=== PATIENT | female | born 1980 | race Caucasian/White ===

== ENCOUNTER 2019-01-08 15:12 | Emergency (ER) | payer OTHER ==
[2019-01-08] MEDS ORDERED: HYDROmorphone 2 MG/ML SDV IM ONE (15:20)
--- NOTE | 2019-01-08 15:38 | EDM.PDOC ---
ED HPI GENERAL MEDICAL PROBLEM - General Chief Complaint: Back Pain or Injury Stated Complaint: LR BACK PAIN Time Seen by Provider: 01/08/19 15:22 Source of Information: Reports: Patient History Limitations: Reports: No Limitations - History of Present Illness INITIAL COMMENTS - FREE TEXT/NARRATIVE: HISTORY AND PHYSICAL: History of present illness: Patient is a 38-year-old female who presents to the emergency room today with complaints of left low lumbar back pain that radiates down her gluteal and is associated with some tingling to the lower extremity. She states symptoms have been ongoing for approximately one week after bending down to pick something off the ground. She has seen the chiropractor for adjustments 3 times within the last several days, without any relief. Patient reports that she has now had 3 episodes of back pain since August 2018. She denies any recent injury, trauma or falls. Patient is ambulatory into the emergency room and does have full sensation of the affected extremity. She states the position of comfort is hunched over and leaning on something stable. Patient denies any fever, chills, headache, change in vision, syncope or near syncope. Denies any chest pain, shortness of breath or cough. Denies any abdominal pain, nausea, vomiting, diarrhea, constipation or dysuria. Has not noted any blood in urine or stool. Patient has been eating and drinking appropriately. Review of systems: As per history of present illness and below otherwise all systems reviewed and negative. Past medical history: As per history of present illness and as reviewed below otherwise noncontributory. Surgical history: As per history of present illness and as reviewed below otherwise noncontributory. Social history: See social history for further information Family history: As per history of present illness and as reviewed below otherwise noncontributory. Physical exam: General: Well-developed and well nourished 38-year-old female. Alert and oriented. Nontoxic appearing and in no acute distress. HEENT: Atraumatic, normocephalic, pupils equal and reactive bilaterally, negative for conjunctival pallor or scleral icterus, mucous membranes moist, TMs normal bilaterally, throat clear, neck supple, nontender, trachea midline. No drooling or trismus noted. No meningeal signs. No hot potato voice noted. Lungs: Clear to auscultation, breath sounds equal bilaterally, chest nontender. Heart: S1S2, regular rate and rhythm without overt murmur Abdomen: Soft, nondistended, nontender. Negative for masses or hepatosplenomegaly. Negative for costovertebral tenderness. Pelvis: Stable nontender. Genitourinary: Deferred. Rectal: Deferred. Skin: Intact, warm, dry. No lesions or rashes noted. Extremities: Atraumatic, moves all extremities per self without difficulty or deficits, negative for cords or calf pain. Neurovascular unremarkable. C-spine/Back: No pinpoint vertebral tenderness upon palpation. No crepitus, step -offs or obvious deformities. Patient is ambulatory into the emergency room without difficulty or deficits. She denies any urinary or fecal incontinence. Denies any numbness, tingling or saddle paresthesias. Patient does have some muscular tenderness to the low lumbar region above the left gluteus. Neuro: Awake, alert, oriented. Cranial nerves II through XII unremarkable. Cerebellum unremarkable. Motor and sensory unremarkable throughout. Exam nonfocal. Notes: Patient denies any chance of , total hysterectomy. Approximately one hour after receiving the Dilaudid IM, as we are waiting on the CT results, she states her pain has not improved. We'll give her Toradol and Norflex IM. Her vital signs are stable. Ct shows that at L5-S1, caudally migrated left central disc extrusion extends into the left lateral recess with likely impingement of traversing left S1 nerve roots. Correlate with symptoms of left S1 radiculopathy. At L4-5, mild right neural foraminal narrowing. Asymmetric narrowing of the right lateral recess. No acute fracture or spondylolisthesis. Mild leftward lumbar curvature. CT results were reviewed with the patient. Supportive care measures were reviewed and discussed. Voices understanding and is agreeable to plan of care. Denies any further questions or concerns at this time. Diagnostics: CBC, CMP, UA, CT lumbar spine Therapeutics: Dilaudid IM, Norflex, Toradol Prescription: Diclofenac (#30) Cromwell (#30) Bactrim 160mg Impression: Lumbar back pain UTI Plan: 1. The medication he received as an injection today does cause drowsiness so do not drive for the remaining day 2. When resting please lay on a flat firm surface. Limit your immobility to prevent muscle stiffness, get up to ambulate/move around/gentle stretching multiple times throughout the day. May alternate heat and ice to the painful area and 3. Tylenol as needed for back pain. Otherwise take the prescribed Cromwell and diclofenac as directed. Diclofenac is an anti-inflammatory so do not take any additional NSAIDs with this medication, such as ibuprofen or Aleve. Cromwell may cause drowsiness a do not take it will driving her needing to be functioning outside of the house. 4. Please follow-up with your primary care provider as we discussed. 5. Return to the ED as needed and as discussed. Definitive disposition and diagnosis as appropriate pending reevaluation and review of above. Lower Back Pain Score (Numeric/FACES): 10 - Related Data Allergies Allergy/AdvReac Type Severity Reaction Status Date / Time No Known Allergies Allergy Verified 06/06/14 06:03 Home Meds: Home Meds . [Unable to Verify Home Med List] 01/08/19 [History] ED ROS GENERAL - Review of Systems Review Of Systems: ROS reveals no pertinent complaints other than HPI. ED EXAM,LOWER BACK PAIN/INJURY - Physical Exam Exam: See Below (See dictation) Course - Vital Signs Last Recorded V/S: Last Vital Signs Temp 98 F 01/08/19 15:18 Pulse 125 H 01/08/19 15:18 Resp 22 H 01/08/19 15:18 BP 134/93 H 01/08/19 15:18 Pulse Ox 98 01/08/19 15:18 - Orders/Labs/Meds Labs: Laboratory Tests 01/08/19 01/08/19 01/08/19 Range/Units 15:30 15:30 16:40 WBC 16.04 H (4.0-11.0) K/uL RBC 5.73 (4.30-5.90) M/uL Hgb 16.9 H (12.0-16.0) g/dL Hct 47.7 H (36.0-46.0) % MCV 83.2 (80.0-98.0) fL MCH 29.5 (27.0-32.0) pg MCHC 35.4 (31.0-37.0) g/dL RDW Std Deviation 41.1 (28.0-62.0) fl RDW Coeff of Jaiden 14 (11.0-15.0) % Plt Count 109 L (150-400) K/uL MPV 11.50 (7.40-12.00) fL Neut % (Auto) 74.2 (48.0-80.0) % Lymph % (Auto) 19.6 (16.0-40.0) % [place] % (Auto) 5.9 (0.0-15.0) % Eos % (Auto) 0.1 (0.0-7.0) % Baso % (Auto) 0.2 (0.0-1.5) % Neut # (Auto) 11.9 H (1.4-5.7) K/uL Lymph # (Auto) 3.1 H (0.6-2.4) K/uL [place] # (Auto) 1.0 H (0.0-0.8) K/uL Eos # (Auto) 0.0 (0.0-0.7) K/uL Baso # (Auto) 0.0 (0.0-0.1) K/uL Nucleated RBC % 0.0 /100WBC Nucleated RBCs # 0 K/uL Sodium 138 (136-145) mmol/L Potassium 4.4 (3.5-5.1) mmol/L Chloride 103 (98-107) mmol/L Carbon Dioxide 23.9 (21.0-32.0) mmol/L BUN 14 (7.0-18.0) mg/dL Creatinine 0.8 (0.6-1.0) mg/dL Est Cr Clr Drug Dosing 90.90 mL/min Estimated GFR (MDRD) > 60.0 ml/min Glucose 108 H (74-106) mg/dL Calcium 9.3 (8.5-10.1) mg/dL Total Bilirubin 1.3 H (0.2-1.0) mg/dL AST 15 (15-37) IU/L ALT 24 (14-63) IU/L Alkaline Phosphatase 74 (46-116) U/L Total Protein 8.3 H (6.4-8.2) g/dL Albumin 4.8 (3.4-5.0) g/dL Globulin 3.5 (2.6-4.0) g/dL Albumin/Globulin Ratio 1.4 (0.9-1.6) Urine Color YELLOW Urine Appearance SLT CLOUDY Urine pH 6.0 (5.0-8.0) Ur Specific [place] 1.020 (1.001-1.035) Urine Protein NEGATIVE (NEGATIVE) mg/dL Urine Glucose (UA) NEGATIVE (NEGATIVE) mg/dL Urine Ketones 40 H (NEGATIVE) mg/dL Urine Occult Blood MODERATE H (NEGATIVE) Urine Nitrite NEGATIVE (NEGATIVE) Urine Bilirubin SMALL H (NEGATIVE) Urine Ictotest NEGATIVE Urine Urobilinogen 0.2 (<2.0) EU/dL Ur Leukocyte Esterase NEGATIVE (NEGATIVE) Urine RBC 2-4 (0-2/HPF) Urine WBC 8-12 (0-5/HPF) Ur Epithelial Cells MODERATE (NONE-FEW) Amorphous Sediment FEW (NEGATIVE) Urine Bacteria 1+ H (NEGATIVE) Urine Mucus FEW (NONE-MOD) Meds: Medications Discontinued Medications Generic Name Dose Route Start Last Admin Trade Name Freq PRN Reason Stop Dose Admin Hydromorphone HCl 1 mg 01/08/19 15:20 01/08/19 15:57 Dilaudid IM 01/08/19 15:21 Not Given ONETIME ONE Hydromorphone HCl Confirm 01/08/19 15:49 01/08/19 15:52 Dilaudid Administered 01/08/19 15:50 1 mg Dose Administration 1 mg .ROUTE .STK-MED ONE Ketorolac Tromethamine 60 mg 01/08/19 16:40 01/08/19 16:46 Toradol IM 01/08/19 16:41 60 mg ONETIME ONE Administration Orphenadrine Citrate 60 mg 01/08/19 16:41 01/08/19 16:46 Norflex IM 01/08/19 16:42 60 mg NOW STA Administration Departure - Departure Time of Disposition: 17:03 Disposition: Home, Self-Care 01 Clinical Impression: Back pain of lumbar region with sciatica UTI (urinary tract infection) Qualifiers: Urinary tract infection type: acute cystitis Hematuria presence: with hematuria Qualified Code(s): N30.01 - Acute cystitis with hematuria - Discharge Information Referrals: Meghann French BLAST FURNACE KEEPER HELPER [Primary Care Provider] - Forms: ED Department Discharge Additional Instructions: The following information is given to patients seen in the emergency department who are being discharged to home. This information is to outline your options for follow-up care. We provide all patients seen in our emergency department with a follow-up referral. The need for follow-up, as well as the timing and circumstances, are variable depending upon the specifics of your emergency department visit. If you don't have a primary care physician on staff, we will provide you with a referral. We always advise you to contact your personal physician following an emergency department visit to inform them of the circumstance of the visit and for follow-up with them and/or the need for any referrals to a consulting specialist. The emergency department will also refer you to a specialist when appropriate. This referral assures that you have the opportunity for follow-up care with a specialist. All of these measure are taken in an effort to provide you with optimal care, which includes your follow-up. Under all circumstances we always encourage you to contact your private physician who remains a resource for coordinating your care. When calling for follow-up care, please make the office aware that this follow-up is from your recent emergency room visit. If for any reason you are refused follow-up, please contact the [facility] Emergency Department at and asked to speak to the emergency department charge nurse. [facility] [address] [place] [id number] [facility] [address] [place] [address] 1. The medication he received as an injection today does cause drowsiness so do not drive for the remaining day 2. When resting please lay on a flat firm surface. Limit your immobility to prevent muscle stiffness, get up to ambulate/move around/gentle stretching multiple times throughout the day. May alternate heat and ice to the painful area and 3. Tylenol as needed for back pain. Otherwise take the prescribed Cromwell and diclofenac as directed. Diclofenac is an anti-inflammatory so do not take any additional NSAIDs with this medication, such as ibuprofen or Aleve. Cromwell may cause drowsiness a do not take it will driving her needing to be functioning outside of the house. 4. Please follow-up with your primary care provider as we discussed. 5. Return to the ED as needed and as discussed.
[2019-01-08] MEDS ORDERED: HYDROmorphone 1 MG/ML Syringe ONE (15:49)
[2019-01-08 15:58] LABS: CHLORIDE,CL 103 mmol/L (98-107); SODIUM,NA 138 mmol/L (136-145)
[2019-01-08] MEDS ORDERED: Ketorolac 60 MG/2 ML SDV IM ONE (16:40)
--- NOTE | 2019-01-08 16:47 | CT ---
INDICATION: Low back pain. Left-sided radiculopathy. TECHNIQUE: Noncontrast CT images were acquired through the lumbar spine. COMPARISON: None. FINDINGS: Mild leftward lumbar curvature. The lumbar lordosis is preserved. Vertebral heights are maintained. No acute fracture. T12-L1 through L2-3: No spinal canal or neural foraminal narrowing. L3-4: Shallow circumferential disc bulging. No spinal canal or neural foraminal narrowing. L4-5: Right eccentric posterior disc bulging and endplate spondylitic ridging. Mild bilateral facet arthropathy. No spinal canal narrowing. Asymmetric narrowing of the right lateral recess. Mild right without left neural foraminal narrowing. L5-S1: Moderate disc height loss associated with endplate irregularity and vertebral body sclerosis. Posterior disc bulge. Left central disc extrusion measuring approximately 7 mm in short axis and demonstrating caudal migration extends into the left lateral recess with likely impingement of traversing left S1 nerve roots. Mild bilateral facet arthropathy. Endplate spondylitic ridging. No spinal canal narrowing. Mild bilateral neural foraminal narrowing. IMPRESSION: 1. At L5-S1, caudally migrated left central disc extrusion extends into the left lateral recess with likely impingement of traversing left S1 nerve roots. Correlate with symptoms of left S1 radiculopathy. 2. At L4-5, mild right neural foraminal narrowing. Asymmetric narrowing of the right lateral recess. 3. No acute fracture or spondylolisthesis. 4. Mild leftward lumbar curvature. Please note that all CT scans at this facility use dose modulation, iterative reconstruction, and/or weight-based dosing when appropriate to reduce radiation dose to as low as reasonably achievable. Dictated by Alfred Llanes MD @ Jan 08 2019 4:39PM Signed by Dr. Alfred Llanes @ Jan 08 2019 4:45PM
== END 2019-01-08 17:44 | disposition home or self-care (01) ==
LOC: MW.ED 15:12
DX: N30.01 Acute cystitis with hematuria (principal); M54.42 Lumbago with sciatica, left side; Z90.710 Acquired absence of both cervix and uterus
CPT/HCPCS: 36415; 72131; 80053; 81001; 85025; 96372; 99284; J1170; J1885; J2360

== ENCOUNTER 2019-01-10 22:30 | Observation (INO) | payer OTHER ==
[2019-01-10] MEDS ORDERED: Sodium Chloride 0.9% 1,000 ML IV ONE (22:43)
[2019-01-10] MEDS ORDERED: HYDROmorphone 2 MG/ML SDV IVPUSH ONE ×2 (22:57→23:57)
--- NOTE | 2019-01-10 22:59 | EDM.PDOC ---
ED HPI GENERAL MEDICAL PROBLEM - General Chief Complaint: Back Pain or Injury Stated Complaint: LOWER BACK PAIN Time Seen by Provider: 01/10/19 22:58 Source of Information: Reports: Patient - History of Present Illness INITIAL COMMENTS - FREE TEXT/NARRATIVE: HISTORY AND PHYSICAL: History of present illness: [Patient presents with low back pain 10 out of 10, was seen in the ER several days ago she has failed conservative management She also has UTI No fever nausea vomiting chills sweats no footdrop saddle anesthesia or bowel or urine symptoms Patienthas been unable to sleep ] Review of systems: As per history of present illness and below otherwise all systems reviewed and negative. Past medical history: As per history of present illness and as reviewed below otherwise noncontributory. Surgical history: As per history of present illness and as reviewed below otherwise noncontributory. Social history: No reported history of drug or alcohol abuse. Family history: As per history of present illness and as reviewed below otherwise noncontributory. Physical exam: HEENT: Atraumatic, normocephalic, pupils reactive, negative for conjunctival pallor or scleral icterus, mucous membranes moist, throat clear, neck supple, nontender, trachea midline. Lungs: Clear to auscultation, breath sounds equal bilaterally, chest nontender. Heart: S1S2, regular, negative for clicks, rubs, or JVD. Abdomen: Soft, nondistended, nontender. Negative for masses or hepatosplenomegaly. Negative for costovertebral tenderness. Pelvis: Stable nontender. Genitourinary: Deferred. Rectal: Deferred. Extremities: Atraumatic, negative for cords or calf pain. Neurovascular unremarkable. Neuro: Awake, alert, oriented. Cranial nerves II through XII unremarkable. Cerebellum unremarkable. Motor and sensory unremarkable throughout. Exam nonfocal. Diagnostics: [CBC CMP UA blood cultures 2 lactic cold blood Lumbar spine CT on electronic file ] Therapeutics: [Normal saline dilauded 1 mg IV Levaquin 500 by mouth now Impression: Intractable Low back pain multi level disc bulges - [UTI Hypotension Tachycardia Low back pain left sciatic distribution Definitive disposition and diagnosis as appropriate pending reevaluation and review of above. Back Pain Score (Numeric/FACES): 10 - Related Data Allergies Allergy/AdvReac Type Severity Reaction Status Date / Time No Known Allergies Allergy Verified 01/10/19 22:33 Home Meds: Home Meds Eltrombopag Olamine [Promacta] 50 mg PO DAILY 01/10/19 [History] Past Medical History HEENT History: Reports: None Cardiovascular History: Reports: Heart Murmur Respiratory History: Reports: None Genitourinary History: Reports: None PHARMACY DATA ANALYST History: Reports: None Musculoskeletal History: Reports: None Neurological History: Reports: None Psychiatric History: Reports: None Endocrine/Metabolic History: Reports: None Hematologic History: Reports: Idiopathic Thrombocytopenia Immunologic History: Reports: None Oncologic (Cancer) History: Reports: None Dermatologic History: Reports: None - Infectious Disease History Infectious Disease History: Reports: Chicken Pox - Past Surgical History Head Surgeries/Procedures: Reports: None GI Surgical History: Reports: Cholecystectomy Social & Family History - Family History Family Medical History: Noncontributory - Tobacco Use Smoking Status *Q: Current Every Day Smoker Years of Tobacco use: 15 Packs/Tins Daily: 0.5 - Caffeine Use Caffeine Use: Reports: None - Recreational Drug Use Recreational Drug Use: No ED ROS GENERAL - Review of Systems Review Of Systems: See Below ED EXAM, GENERAL - Physical Exam Exam: See Below Course - Vital Signs Last Recorded V/S: Last Vital Signs Temp 97.0 F 01/10/19 22:34 Pulse 97 01/10/19 23:29 Resp 20 01/10/19 23:29 BP 126/71 01/10/19 23:29 Pulse Ox 96 01/10/19 23:29 - Orders/Labs/Meds Orders: Active Orders 24 hr Category Date Time Status CULTURE BLOOD [BC] Stat Lab 01/10/19 22:51 Received CULTURE BLOOD [BC] Stat Lab 01/10/19 22:59 Received HCG QUALITATIVE,URINE [URCHEM] Stat Lab 01/10/19 22:43 Ordered UA RFX PORTILLO AND CULT IF INDIC [URIN] Stat Lab 01/10/19 22:42 Ordered Blood Culture x2 Reflex Set [OM.PC] Stat Oth 01/10/19 22:43 Ordered Labs: Laboratory Tests 01/10/19 01/10/19 01/10/19 Range/Units 22:51 22:51 22:51 WBC 14.07 H (4.0-11.0) K/uL RBC 5.48 (4.30-5.90) M/uL Hgb 16.1 H (12.0-16.0) g/dL Hct 45.2 (36.0-46.0) % MCV 82.5 (80.0-98.0) fL MCH 29.4 (27.0-32.0) pg MCHC 35.6 (31.0-37.0) g/dL RDW Std Deviation 39.4 (28.0-62.0) fl RDW Coeff of Jaiden 13 (11.0-15.0) % Plt Count 215 (150-400) K/uL MPV 11.30 (7.40-12.00) fL Neut % (Auto) 64.8 (48.0-80.0) % Lymph % (Auto) 26.5 (16.0-40.0) % [place] % (Auto) 7.4 (0.0-15.0) % Eos % (Auto) 0.8 (0.0-7.0) % Baso % (Auto) 0.5 (0.0-1.5) % Neut # (Auto) 9.1 H (1.4-5.7) K/uL Lymph # (Auto) 3.7 H (0.6-2.4) K/uL [place] # (Auto) 1.0 H (0.0-0.8) K/uL Eos # (Auto) 0.1 (0.0-0.7) K/uL Baso # (Auto) 0.1 (0.0-0.1) K/uL Nucleated RBC % 0.0 /100WBC Nucleated RBCs # 0 K/uL Lactate 1.3 (0.20-2.00) mmol/L Sodium 135 L (136-145) mmol/L Potassium 4.1 (3.5-5.1) mmol/L Chloride 99 (98-107) mmol/L Carbon Dioxide 21.7 (21.0-32.0) mmol/L BUN 17 (7.0-18.0) mg/dL Creatinine 0.9 (0.6-1.0) mg/dL Est Cr Clr Drug Dosing 80.80 mL/min Estimated GFR (MDRD) > 60.0 ml/min Glucose 94 (74-106) mg/dL Calcium 8.9 (8.5-10.1) mg/dL Total Bilirubin 1.2 H (0.2-1.0) mg/dL AST 78 H (15-37) IU/L ALT 168 H (14-63) IU/L Alkaline Phosphatase 105 (46-116) U/L Total Protein 7.9 (6.4-8.2) g/dL Albumin 4.4 (3.4-5.0) g/dL Globulin 3.5 (2.6-4.0) g/dL Albumin/Globulin Ratio 1.3 (0.9-1.6) Meds: Medications Discontinued Medications Generic Name Dose Route Start Last Admin Trade Name Freq PRN Reason Stop Dose Admin Hydromorphone HCl 1 mg 01/10/19 22:57 01/10/19 23:03 Dilaudid IVPUSH 01/10/19 22:58 1 mg ONETIME ONE Administration Hydromorphone HCl Confirm 01/10/19 23:00 01/10/19 23:04 Dilaudid Administered 01/10/19 23:01 Not Given Dose 1 mg .ROUTE .STK-MED ONE Sodium Chloride 1,000 mls @ 999 mls/hr 01/10/19 22:43 01/10/19 23:02 Normal Saline IV 01/10/19 23:43 999 mls/hr STAT ONE Administration Levofloxacin 500 mg 01/10/19 23:23 Levaquin PO 01/10/19 23:24 ONETIME ONE Departure - Departure Time of Disposition: 23:50 Disposition: Refer to Observation Condition: Poor Clinical Impression: Intractable pain - Discharge Information Referrals: Meghann French MACHINE CLOTHING WORKER [Primary Care Provider] - Forms: ED Department Discharge - My Orders Last 24 Hours: My Active Orders 01/10/19 22:42 UA RFX PORTILLO AND CULT IF INDIC [URIN] Stat 01/10/19 22:43 HCG QUALITATIVE,URINE [URCHEM] Stat Blood Culture x2 Reflex Set [OM.PC] Stat 01/10/19 22:51 CULTURE BLOOD [BC] Stat 01/10/19 22:59 CULTURE BLOOD [BC] Stat - Assessment/Plan Last 24 Hours: My Active Orders 01/10/19 22:42 UA RFX PORTILLO AND CULT IF INDIC [URIN] Stat 01/10/19 22:43 HCG QUALITATIVE,URINE [URCHEM] Stat Blood Culture x2 Reflex Set [OM.PC] Stat 01/10/19 22:51 CULTURE BLOOD [BC] Stat 01/10/19 22:59 CULTURE BLOOD [BC] Stat
[2019-01-10] MEDS ORDERED: HYDROmorphone 1 MG/ML Syringe ONE (23:00)
[2019-01-10 23:22] LABS: CHLORIDE,CL 99 mmol/L (98-107); SODIUM,NA 135 mmol/L (136-145)
[2019-01-10] MEDS ORDERED: Levofloxacin 500 MG Tab PO ONE (23:23)
[2019-01-11] MEDS ORDERED: HYDROmorphone 1 MG/ML Syringe ONE (00:01)
[2019-01-11] MEDS ORDERED: HYDROmorphone 2 MG/ML Syringe IVPUSH ONE (00:02)
[2019-01-11] MEDS ORDERED: oxyCODONE 5 MG Tab PO PRN ×2 (00:34→13:04)
[2019-01-11] MEDS: HYDROmorphone 1 MG/ML Syringe IVPUSH PRN ×6 (00:56→16:49)
[2019-01-11 08:53] LABS: CHLORIDE,CL 103 mmol/L (98-107); SODIUM,NA 137 mmol/L (136-145)
--- NOTE | 2019-01-11 10:08 | PCM.HP ---
H&P History of Present Illness - General Date of Service: 01/11/19 Admit Problem/Dx: Admission Diagnosis/Problem Admission Diagnosis/Problem Intractable back pain Source of Information: Patient History Limitations: Reports: No Limitations - History of Present Illness Initial Comments - Free Text/Narative: This 38 year old female with pmh of ITP treated with splenectomy and current treatment on immune therapy presented to the ED initially three days ago for back and L left pain. She reports this has been present for approximately 1 week. She denies trauma or injury. She merely was bending down and starting having back pain. She saw a chiropractor which helped the first time, then he did another treatment and she said the moment after he adjusted her things changed and she said that didn't feel right. That is when the pain moved from her back to more her gluteal region. She reports the only thing that has helped the pain is standing and bending over a bed to relieve the pressure and pain. She is unable to sit or lay down for very long due to the pain. She reports the pain is sharp shooting when she stands straight up and then it shoots down her leg and then her leg and outer foot go numb and tingly. She denies bowel or urinary incontinence. She denies any other concerns. No chest pain or palpitations. No shortness of breath or abdominal pain. She guillaume smoke 1 ppd, but that has been limited now due to pain. No alcohol or recreational drug use In the ED labwork obtained, mild leukocytosis likely secondary to asplenia. Otherwise labwork WNL. CT on 01/08 revealed L5- S1 caudally migrated left central disc extrusion extends into the left lateral recess with likely impingement of traversing left S1 nerve roots, L4-5 mild right neural foraminal narrowing, asymmetric narrowing of R lateral recess, no acute fractures. Admitted for intractable pain. Back Pain Score (Numeric/FACES): 10 - Related Data Allergies/Adverse Reactions: Allergies Allergy/AdvReac Type Severity Reaction Status Date / Time No Known Allergies Allergy Verified 01/10/19 22:33 Home Medications: Home Meds Eltrombopag Olamine [Promacta] 50 mg PO MOTUWETHFR 01/10/19 [History] Eltrombopag Olamine [Promacta] 25 mg PO SUSA 01/11/19 [History] Past Medical History HEENT History: Reports: None Cardiovascular History: Reports: Heart Murmur. Denies: Afib, Blood Clots/VTE/ DVT, High Cholesterol, Hypertension, DC Respiratory History: Reports: None. Denies: COPD, SOB Genitourinary History: Reports: None. 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 Denies: CVA, TIA Psychiatric History: Reports: None Endocrine/Metabolic History: Reports: None Hematologic History: Reports: Idiopathic Thrombocytopenia Immunologic History: Reports: None Oncologic (Cancer) History: Reports: None Dermatologic History: Reports: None - Infectious Disease History Infectious Disease History: Reports: Chicken Pox - Past Surgical History Head Surgeries/Procedures: Reports: None GI Surgical History: Reports: Cholecystectomy, Other (See Below) (splenectomy) Social & Family History - Family History Family Medical History: Noncontributory - Tobacco Use Smoking Status *Q: Current Every Day Smoker Years of Tobacco use: 15 Packs/Tins Daily: 1 Second Hand Smoke Exposure: Yes - Caffeine Use Caffeine Use: Reports: Coffee, Soda - Alcohol Use Alcohol Use Frequency: Rarely - Recreational Drug Use Recreational Drug Use: No - Living Situation & Occupation Living situation: Reports: Occupation: Employed H&P Review of Systems - Review of Systems: Review Of Systems: See Below General: Reports: No Symptoms. Denies: Fever, Chills, Malaise, Weakness HEENT: Reports: No Symptoms. Denies: Headaches, Sore Throat, Vertigo Pulmonary: Reports: No Symptoms. Denies: Shortness of Breath Cardiovascular: Reports: No Symptoms. Denies: Chest Pain, Orthopnea, Edema Gastrointestinal: Reports: No Symptoms. Denies: Abdominal Pain, Black Stool, Nausea, Vomiting Genitourinary: Reports: No Symptoms. Denies: Dysuria, Frequency, Burning Musculoskeletal: Reports: Leg Pain (just below gluteal flect, sharp shooting, especially when she stands with radiculopathy) Skin: Reports: No Symptoms Psychiatric: Reports: No Symptoms Exam - Exam Exam: See Below - Vital Signs Vital Signs: Last Vital Signs Temp 96.9 F 01/11/19 04:30 Pulse 86 01/11/19 04:30 Resp 18 01/11/19 04:30 BP 136/65 01/11/19 04:30 Pulse Ox 98 01/11/19 04:30 Weight: 104.326 kg - Exam General: Alert, Oriented HEENT: Conjunctiva Clear Lungs: Clear to Auscultation, Normal Respiratory Effort Cardiovascular: Regular Rate, Regular Rhythm GI/Abdominal Exam: Normal Bowel Sounds, Soft, Non-Tender Back Exam: Decreased Range of Motion. No: Full Range of Motion (limited due to pain to L leg), CVA Tenderness (L), CVA Tenderness (R), Muscle Spasm, Paraspinal Tenderness, Vertebral Tenderness Extremities: Normal Inspection, Non-Tender, No Pedal Edema. No: Normal Range of Motion (limited due to pain) Neuro Extensive - Mental Status: Alert, Oriented x3 Neuro Extensive - Motor, Sensory, Reflexes: CN II-XII Intact Psychiatric: Alert, Normal Affect, Normal Mood - Patient Data Lab Results Last 24 hrs: Laboratory Results - last 24 hr 01/10/19 01/10/19 01/10/19 Range/Units 22:51 22:51 22:51 WBC 14.07 H (4.0-11.0) K/uL RBC 5.48 (4.30-5.90) M/uL Hgb 16.1 H (12.0-16.0) g/dL Hct 45.2 (36.0-46.0) % MCV 82.5 (80.0-98.0) fL MCH 29.4 (27.0-32.0) pg MCHC 35.6 (31.0-37.0) g/dL RDW Std Deviation 39.4 (28.0-62.0) fl RDW Coeff of Jaiden 13 (11.0-15.0) % Plt Count 215 (150-400) K/uL MPV 11.30 (7.40-12.00) fL Neut % (Auto) 64.8 (48.0-80.0) % Lymph % (Auto) 26.5 (16.0-40.0) % Callahan % (Auto) 7.4 (0.0-15.0) % Eos % (Auto) 0.8 (0.0-7.0) % Baso % (Auto) 0.5 (0.0-1.5) % Neut # (Auto) 9.1 H (1.4-5.7) K/uL Lymph # (Auto) 3.7 H (0.6-2.4) K/uL Callahan # (Auto) 1.0 H (0.0-0.8) K/uL Eos # (Auto) 0.1 (0.0-0.7) K/uL Baso # (Auto) 0.1 (0.0-0.1) K/uL Nucleated RBC % 0.0 /100WBC Nucleated RBCs # 0 K/uL Lactate 1.3 (0.20-2.00) mmol/L Sodium 135 L (136-145) mmol/L Potassium 4.1 (3.5-5.1) mmol/L Chloride 99 (98-107) mmol/L Carbon Dioxide 21.7 (21.0-32.0) mmol/L BUN 17 (7.0-18.0) mg/dL Creatinine 0.9 (0.6-1.0) mg/dL Est Cr Clr Drug Dosing 80.80 mL/min Estimated GFR (MDRD) > 60.0 ml/min Glucose 94 (74-106) mg/dL Calcium 8.9 (8.5-10.1) mg/dL Total Bilirubin 1.2 H (0.2-1.0) mg/dL AST 78 H (15-37) IU/L ALT 168 H (14-63) IU/L Alkaline Phosphatase 105 (46-116) U/L Total Protein 7.9 (6.4-8.2) g/dL Albumin 4.4 (3.4-5.0) g/dL Globulin 3.5 (2.6-4.0) g/dL Albumin/Globulin Ratio 1.3 (0.9-1.6) Urine Color Urine Appearance Urine pH (5.0-8.0) Ur Specific [place] (1.001-1.035) Urine Protein (NEGATIVE) mg/dL Urine Glucose (UA) (NEGATIVE) mg/dL Urine Ketones (NEGATIVE) mg/dL Urine Occult Blood (NEGATIVE) Urine Nitrite (NEGATIVE) Urine Bilirubin (NEGATIVE) Urine Ictotest Urine Urobilinogen (<2.0) EU/dL Ur Leukocyte Esterase (NEGATIVE) Urine RBC (0-2/HPF) Urine WBC (0-5/HPF) Ur Epithelial Cells (NONE-FEW) Urine Bacteria (NEGATIVE) Urine HCG, Qual (NEGATIVE) 01/11/19 01/11/19 01/11/19 Range/Units 04:55 04:55 08:27 WBC 11.93 H (4.0-11.0) K/uL RBC 5.25 (4.30-5.90) M/uL Hgb 15.4 (12.0-16.0) g/dL Hct 43.7 (36.0-46.0) % MCV 83.2 (80.0-98.0) fL MCH 29.3 (27.0-32.0) pg MCHC 35.2 (31.0-37.0) g/dL RDW Std Deviation 39.9 (28.0-62.0) fl RDW Coeff of Jaiden 13 (11.0-15.0) % Plt Count 259 (150-400) K/uL MPV 11.20 (7.40-12.00) fL Neut % (Auto) 63.8 (48.0-80.0) % Lymph % (Auto) 24.5 (16.0-40.0) % Callahan % (Auto) 9.7 (0.0-15.0) % Eos % (Auto) 1.3 (0.0-7.0) % Baso % (Auto) 0.7 (0.0-1.5) % Neut # (Auto) 7.6 H (1.4-5.7) K/uL Lymph # (Auto) 2.9 H (0.6-2.4) K/uL Callahan # (Auto) 1.2 H (0.0-0.8) K/uL Eos # (Auto) 0.2 (0.0-0.7) K/uL Baso # (Auto) 0.1 (0.0-0.1) K/uL Nucleated RBC % 0.0 /100WBC Nucleated RBCs # 0 K/uL Lactate (0.20-2.00) mmol/L Sodium (136-145) mmol/L Potassium (3.5-5.1) mmol/L Chloride (98-107) mmol/L Carbon Dioxide (21.0-32.0) mmol/L BUN (7.0-18.0) mg/dL Creatinine (0.6-1.0) mg/dL Est Cr Clr Drug Dosing mL/min Estimated GFR (MDRD) ml/min Glucose (74-106) mg/dL Calcium (8.5-10.1) mg/dL Total Bilirubin (0.2-1.0) mg/dL AST (15-37) IU/L ALT (14-63) IU/L Alkaline Phosphatase (46-116) U/L Total Protein (6.4-8.2) g/dL Albumin (3.4-5.0) g/dL Globulin (2.6-4.0) g/dL Albumin/Globulin Ratio (0.9-1.6) Urine Color YELLOW Urine Appearance CLEAR Urine pH 5.5 (5.0-8.0) Ur Specific [place] 1.020 (1.001-1.035) Urine Protein NEGATIVE (NEGATIVE) mg/dL Urine Glucose (UA) NEGATIVE (NEGATIVE) mg/dL Urine Ketones >=80 (NEGATIVE) mg/dL Urine Occult Blood TRACE-LYSED H (NEGATIVE) Urine Nitrite NEGATIVE (NEGATIVE) Urine Bilirubin SMALL H (NEGATIVE) Urine Ictotest NEGATIVE Urine Urobilinogen 0.2 (<2.0) EU/dL Ur Leukocyte Esterase NEGATIVE (NEGATIVE) Urine RBC 1-3 (0-2/HPF) Urine WBC 0-1 (0-5/HPF) Ur Epithelial Cells FEW (NONE-FEW) Urine Bacteria FEW (NEGATIVE) Urine HCG, Qual NEGATIVE (NEGATIVE) 01/11/19 Range/Units 08:27 WBC (4.0-11.0) K/uL RBC (4.30-5.90) M/uL Hgb (12.0-16.0) g/dL Hct (36.0-46.0) % MCV (80.0-98.0) fL MCH (27.0-32.0) pg MCHC (31.0-37.0) g/dL RDW Std Deviation (28.0-62.0) fl RDW Coeff of Jaiden (11.0-15.0) % Plt Count (150-400) K/uL MPV (7.40-12.00) fL Neut % (Auto) (48.0-80.0) % Lymph % (Auto) (16.0-40.0) % Callahan % (Auto) (0.0-15.0) % Eos % (Auto) (0.0-7.0) % Baso % (Auto) (0.0-1.5) % Neut # (Auto) (1.4-5.7) K/uL Lymph # (Auto) (0.6-2.4) K/uL Callahan # (Auto) (0.0-0.8) K/uL Eos # (Auto) (0.0-0.7) K/uL Baso # (Auto) (0.0-0.1) K/uL Nucleated RBC % /100WBC Nucleated RBCs # K/uL Lactate (0.20-2.00) mmol/L Sodium 137 (136-145) mmol/L Potassium 4.2 (3.5-5.1) mmol/L Chloride 103 (98-107) mmol/L Carbon Dioxide 25.4 (21.0-32.0) mmol/L BUN 12 (7.0-18.0) mg/dL Creatinine 0.7 (0.6-1.0) mg/dL Est Cr Clr Drug Dosing 103.89 mL/min Estimated GFR (MDRD) > 60.0 ml/min Glucose 94 (74-106) mg/dL Calcium 8.6 (8.5-10.1) mg/dL Total Bilirubin (0.2-1.0) mg/dL AST (15-37) IU/L ALT (14-63) IU/L Alkaline Phosphatase (46-116) U/L Total Protein (6.4-8.2) g/dL Albumin (3.4-5.0) g/dL Globulin (2.6-4.0) g/dL Albumin/Globulin Ratio (0.9-1.6) Urine Color Urine Appearance Urine pH (5.0-8.0) Ur Specific [place] (1.001-1.035) Urine Protein (NEGATIVE) mg/dL Urine Glucose (UA) (NEGATIVE) mg/dL Urine Ketones (NEGATIVE) mg/dL Urine Occult Blood (NEGATIVE) Urine Nitrite (NEGATIVE) Urine Bilirubin (NEGATIVE) Urine Ictotest Urine Urobilinogen (<2.0) EU/dL Ur Leukocyte Esterase (NEGATIVE) Urine RBC (0-2/HPF) Urine WBC (0-5/HPF) Ur Epithelial Cells (NONE-FEW) Urine Bacteria (NEGATIVE) Urine HCG, Qual (NEGATIVE) Result Diagrams: 01/11/19 08:27 01/11/19 08:27 - Problem List (1) Intractable pain SNOMED Code(s): 50827715 ICD Code: R52 - PAIN, UNSPECIFIED Status: Acute Current Visit: Yes (2) Chronic ITP (idiopathic thrombocytopenia) SNOMED Code(s): 966224628 ICD Code: D69.3 - IMMUNE THROMBOCYTOPENIC PURPURA Status: Chronic Current Visit: Yes Problem List Initiated/Reviewed/Updated: Yes Orders Last 24hrs: Active Orders 24 hr Category Date Time Status Admission Status [Patient Status] [ADT] Stat ADT 01/10/19 23:50 Active Regular Diet [DIET] Diet 01/11/19 Breakfast Active CULTURE BLOOD [BC] Stat Lab 01/10/19 22:51 Received CULTURE BLOOD [BC] Stat Lab 01/10/19 22:59 Received HYDROmorphone [Dilaudid] Med 01/11/19 00:34 Active 1 mg IVPUSH Q2H PRN Ketorolac [Toradol] Med 01/11/19 10:15 Ordered 15 mg IVPUSH Q6H oxyCODONE Med 01/11/19 00:34 Active 5 mg PO Q4H PRN Blood Culture x2 Reflex Set [OM.PC] Stat Oth 01/10/19 22:43 Ordered Medication Orders Hydromorphone HCl (Dilaudid) 1 mg IVPUSH Q2H PRN PRN Reason: Pain Last Admin: 01/11/19 09:43 Dose: 1 mg Admin: 01/11/19 04:45 Dose: 1 mg Admin: 01/11/19 00:56 Dose: 1 mg Ketorolac Tromethamine (Toradol) 15 mg IVPUSH Q6H [facility] Stop: 01/16/19 10:07 Oxycodone HCl (Oxycodone) 5 mg PO Q4H PRN PRN Reason: Pain Assessment/Plan Comment:: This 38 year old female admitted with intractable pain and L leg pain 1. Back pain; Spoke with Dr Franco, neurosurgeon in [place], recommended continued pain management and he would recommend short course of steroids and then follow up with him at his outpatient clinic. He also mentioned attempting to obtain MRI , at this time she is unable to lie flat for any amount of time. 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 Add Toradol and continue Dilaudid. Will increase PO Oxycodone. Heat and ICE PRN. Add bowel regimen. 2. ITP: Stable, continue Promata. VTE prophylaxis: SCDs Dispo: 1-2 days
[2019-01-11] MEDS: Ketorolac 15 MG/ML SDV IVPUSH SCH ×2 (10:34→15:55)
[2019-01-11] MEDS ORDERED: Polyethylene Glycol 3350 Powder 17 GM Packet PO PRN (13:24)
[2019-01-11] MEDS ORDERED: Acetaminophen 325 MG Tab PO PRN (13:24)
[2019-01-11] MEDS ORDERED: Ondansetron 4 MG/2 ML SDV IVPUSH PRN (13:24)
[2019-01-11] MEDS ORDERED: Levofloxacin 500 MG Tab PO SCH (21:00)
[2019-01-11] MEDS ORDERED: Docusate Sodium 100 MG Cap PO SCH (21:00)
== END 2019-01-11 17:00 | disposition home or self-care (01) ==
LOC: MW.ED 22:30 → MW.MS 23:50
PROVIDERS: ADMIT Internal Medicine; ATTEND Internal Medicine
DX: M54.5 Low back pain (principal); M79.605 Pain in left leg; M48.061 Spinal stenosis, lumbar region without neurogenic claudication; D72.829 Elevated white blood cell count, unspecified; D69.3 Immune thrombocytopenic purpura; E78.00 Pure hypercholesterolemia, unspecified; F17.210 Nicotine dependence, cigarettes, uncomplicated; Z79.899 Other long term (current) drug therapy
CPT/HCPCS: 36415; 80048; 80053; 81001; 81025; 83605; 85025; 87040; 96361; 96374; 96375; 96376; 99285; A9270; G0378; J1170; J1885; J7040; 99284

== ENCOUNTER 2019-01-14 09:40 | Emergency (ER) | payer OTHER ==
[2019-01-14] MEDS ORDERED: HYDROmorphone 2 MG/ML SDV IM ONE (10:21)
--- NOTE | 2019-01-14 10:27 | EDM.PDOC ---
ED HPI GENERAL MEDICAL PROBLEM - General Chief Complaint: Back Pain or Injury Stated Complaint: BACK PAIN Time Seen by Provider: 01/14/19 10:22 Source of Information: Reports: Patient History Limitations: Reports: No Limitations - History of Present Illness INITIAL COMMENTS - FREE TEXT/NARRATIVE: HISTORY AND PHYSICAL: History of present illness: Patient is a 38-year-old female who presents to the ED today with concern for 10 out of 10 back pain. Patient was seen on 01/10/19 with similar complaint and was admitted at that time for pain management. CT of the lumbar spine was performed which did show an L5-S1 caudally migrated left central disc extrusion extends into the left lateral recess with a likely impingement of the transverse left S1 nerve root mild neuroforaminal narrowing at L4-L5 asymmetric narrowing of the right lateral recess no acute fractures. At discharge, patient was given a pain regimen as well as placed on prednisone with follow-up with Dr. Franco, neurosurgeon in [place]. Patient states that she has taken medications accordingly and that her follow-up is at the beginning of next week. Patient states since discharge she has not been able to sleep laying down and she remains bent over. Patient states she is starting to have leg pain and swelling due to not laying down. Patient states her pain is unchanged from prior workup. Total duration of symptoms is approximately 1-2 weeks. She describes the pain as sharp and shooting down the left leg. Patient states the pain is better when she is bent over and worse when she tries to stand up. Patient states she is unable to lay down or sit due to pain. Patient denies bowel or bladder retention or incontinence. Patient denies saddle anesthesia. Patient denies fever, chills, chest pain, shortness of breath, or cough. Denies headache, neck stiff ness, change in vision, syncope, or near syncope. Denies nausea, vomiting, abdominal pain, diarrhea, constipation, or dysuria. Has not noted any blood in urine or stool. Patient has been eating and drinking appropriately. Patient has a history of ITP. Review of systems: As per history of present illness and below otherwise all systems reviewed and negative. Past medical history: As per history of present illness and as reviewed below otherwise noncontributory. Surgical history: As per history of present illness and as reviewed below otherwise noncontributory. Social history: See social history for further information Family history: As per history of present illness and as reviewed below otherwise noncontributory. Physical exam: General: Patient is alert, oriented, and in no acute distress. Patient sitting comfortably on exam table. HEENT: Atraumatic, normocephalic, pupils equal and reactive bilaterally, negative for conjunctival pallor or scleral icterus, mucous membranes moist, TMs normal bilaterally, throat clear, neck supple, nontender, trachea midline. No drooling or trismus noted. No meningeal signs. No hot potato voice noted. Lungs: Clear to auscultation, breath sounds equal bilaterally, chest nontender. Heart: S1S2, regular rate and rhythm without overt murmur Abdomen: Soft, nondistended, nontender. Negative for masses or hepatosplenomegaly. Negative for costovertebral tenderness. Pelvis: Stable nontender. Genitourinary: Deferred. Rectal: Rectal tone is intact. Skin: Intact, warm, dry. No lesions or rashes noted. Extremities/musculoskeletal: Atraumatic, negative for cords or calf pain. Neurovascular unremarkable. Patient is bent over on the exam table. Exam of spine range of motion is limited due to pain. Patient is hesitant Neuro: Awake, alert, oriented. Cranial nerves II through XII unremarkable. Cerebellum unremarkable. Motor and sensory unremarkable throughout. Exam nonfocal. Notes: Dr. Rucker verbally involved in patients care. Lumbar MRI shows the lumbar spinal alignment is normal. Vertebral body heights appear maintained. No abnormal bone marrow signal. Endplate signal changes noted at L5-S1. Distal spinal cord is normal and conus terminates at L1 and L2. Visualized retroperitoneal structures appear normal. SI joints are symmetric. Discussed the importance for follow-up as scheduled with her primary care provider as well as with the neurosurgeon. Voices understanding and is agreeable to plan of care. Denies any further questions or concerns at this time. Diagnostics: MRI lumbar Therapeutics: Norflex, Dilaudid Prescription: Flexeril Impression: Bulging disc at L5-S1 Multilevel degenerative disc disease Plan: 1. Take medication as prescribed. Continue to alternate ibuprofen and Tylenol as directed for pain and discomfort. 2. Follow-up with your primary care provider in the neurosurgeon as scheduled. 3. Return to the ED as needed and as discussed. Definitive disposition and diagnosis as appropriate pending reevaluation and review of above. lower back to toes Pain Score (Numeric/FACES): 20 - Related Data Allergies Allergy/AdvReac Type Severity Reaction Status Date / Time No Known Allergies Allergy Verified 01/14/19 09:55 Home Meds: Home Meds Eltrombopag Olamine [Promacta] 50 mg PO MOTUWETHFR 01/10/19 [History] Acetaminophen [Tylenol] 650 mg PO Q4H PRN tablet 01/11/19 [Rx] Eltrombopag Olamine [Promacta] 25 mg PO SUSA 01/11/19 [History] Pantoprazole Sodium [Protonix] 40 mg PO DAILY #30 tablet.dr 01/11/19 [Rx] Polyethylene Glycol 3350 [MiraLAX] 17 gm PO DAILY PRN packet 01/11/19 [Rx] oxyCODONE 5 - 10 mg PO Q4H PRN #30 tab 01/11/19 [Rx] predniSONE 10 - 40 mg PO .TAPER #30 tab 01/11/19 [Rx] Docusate Sodium [Colace] 100 mg PO BID PRN 01/14/19 [History] Ibuprofen 400 mg PO TID PRN 01/14/19 [History] Past Medical History HEENT History: Reports: None Cardiovascular History: Reports: Heart Murmur Respiratory History: Reports: None Genitourinary History: Reports: None [employer]MER History: Reports: None Musculoskeletal History: Reports: None Neurological History: Reports: None, Other (See Below) Other Neuro History: Slipped L5 Psychiatric History: Reports: None Endocrine/Metabolic History: Reports: None Hematologic History: Reports: Idiopathic Thrombocytopenia Immunologic History: Reports: None Oncologic (Cancer) History: Reports: None Dermatologic History: Reports: None - Infectious Disease History Infectious Disease History: Reports: Chicken Pox - Past Surgical History Head Surgeries/Procedures: Reports: None GI Surgical History: Reports: Cholecystectomy, Other (See Below) Other GI Surgeries/Procedures: spleenectomy Female Surgical History: Reports: Hysterectomy Other Female Surgeries/Procedures: Partial Social & Family History - Family History Family Medical History: Noncontributory - Tobacco Use Smoking Status *Q: Current Every Day Smoker Years of Tobacco use: 15 Packs/Tins Daily: 0.5 - Caffeine Use Caffeine Use: Reports: Coffee, Soda - Recreational Drug Use Recreational Drug Use: No - Living Situation & Occupation Living situation: Reports: Occupation: Employed ED ROS GENERAL - Review of Systems Review Of Systems: ROS reveals no pertinent complaints other than HPI. ED EXAM,LOWER BACK PAIN/INJURY - Physical Exam Exam: See Below (See dictation) Course - Vital Signs Last Recorded V/S: Last Vital Signs Temp 36.2 C 01/14/19 09:51 Pulse 109 H 01/14/19 09:51 Resp 24 H 01/14/19 09:51 BP 132/83 01/14/19 09:51 Pulse Ox 99 01/14/19 09:51 - Orders/Labs/Meds Meds: Medications Discontinued Medications Generic Name Dose Route Start Last Admin Trade Name Freq PRN Reason Stop Dose Admin Hydromorphone HCl 1 mg 01/14/19 10:21 01/14/19 10:31 Dilaudid IM 01/14/19 10:22 Not Given ONETIME ONE Hydromorphone HCl 1 mg 01/14/19 10:30 01/14/19 10:31 Dilaudid IM 01/14/19 10:31 1 mg ONETIME ONE Administration Orphenadrine Citrate 60 mg 01/14/19 10:19 01/14/19 10:26 Norflex IM 01/14/19 10:20 60 mg NOW STA Administration Departure - Departure Time of Disposition: 11:45 Disposition: Home, Self-Care 01 Clinical Impression: Bulging disc Degenerative disc disease Qualifiers: Spinal region: lumbar Qualified Code(s): M51.36 - Other intervertebral disc degeneration, lumbar region - Discharge Information Referrals: PCP,None [Primary Care Provider] - Forms: ED Department Discharge Additional Instructions: The following information is given to patients seen in the emergency department who are being discharged to home. This information is to outline your options for follow-up care. We provide all patients seen in our emergency department with a follow-up referral. The need for follow-up, as well as the timing and circumstances, are variable depending upon the specifics of your emergency department visit. If you don't have a primary care physician on staff, we will provide you with a referral. We always advise you to contact your personal physician following an emergency department visit to inform them of the circumstance of the visit and for follow-up with them and/or the need for any referrals to a consulting specialist. The emergency department will also refer you to a specialist when appropriate. This referral assures that you have the opportunity for follow-up care with a specialist. All of these measure are taken in an effort to provide you with optimal care, which includes your follow-up. Under all circumstances we always encourage you to contact your private physician who remains a resource for coordinating your care. When calling for follow-up care, please make the office aware that this follow-up is from your recent emergency room visit. If for any reason you are refused follow-up, please contact the [facility] Emergency Department at and asked to speak to the emergency department charge nurse. [facility] [address] [place] [id number] [facility] [address] [place] [id number] 1. Take medication as prescribed. Continue to alternate ibuprofen and Tylenol as directed for pain and discomfort. 2. Follow-up with your primary care provider in the neurosurgeon as scheduled. 3. Return to the ED as needed and as discussed.
[2019-01-14] MEDS ORDERED: HYDROmorphone 2 MG/ML Syringe IM ONE (10:30)
--- NOTE | 2019-01-14 11:38 | MR ---
EXAMINATION: MRI lumbar spine HISTORY: Intractable pain COMPARISON: CT dated 01/08/2019 TECHNIQUE: Multiplanar and multisequence imaging obtained of the lumbar spine without contrast. FINDINGS: The lumbar spinal alignment is normal. Vertebral body heights appear maintained. There is no abnormal bone marrow signal. Endplate signal changes noted at L5-S1. The distal spinal cord is normal in conus terminates at L1-L2. Visualized retroperitoneal structures appear normal. The SI joints are symmetric. T12-L3: Unremarkable. L3-L4: Small diffuse disc bulge with an annular tear resulting in minimal spinal canal stenosis. Mild bilateral neural foraminal stenosis. L4-L5: Small diffuse disc bulge with an annular tear and mild ligamentum flavum hypertrophy resulting in mild spinal canal stenosis. Minimal bilateral neural foraminal stenosis. L5-S1: Small diffuse disc bulge with a left lateral extrusion component extending towards the left lateral recess and abutting the traversing left S1 nerve root. Otherwise mild spinal canal stenosis and moderate bilateral neural foraminal stenosis. IMPRESSION: 1. Multilevel degenerative changes noted within the lower lumbar spine with individual details above. This is most prominent at L5-S1 with an extrusion extending into the left lateral recess and abutting the left S1 nerve root.
== END 2019-01-14 12:01 | disposition home or self-care (01) ==
LOC: MW.ED 09:40
DX: M51.36 Other intervertebral disc degeneration, lumbar region (principal); F17.210 Nicotine dependence, cigarettes, uncomplicated
CPT/HCPCS: 72148; 96372; 99283; J1170; J2360